=== PATIENT | male | born 1995 | race African-American/Black ===

== ENCOUNTER 2020-07-28 11:23 | Emergency (ER) | payer BC ==
[~2020-07-28] VITALS: Ht 188 cm; Wt 145.5 kg
[2020-07-28 11:48] LABS: BASO % 0.2 % (0.0-2.0); EOS # 0.1 (0.0-0.7); EOS % 0.8 % (0-4.0); GRAN # 9.3 (1.4-6.5); GRAN % 80.3 % (42.2-75.2); HEMATOCRIT 45.4 % (42.0-52.0); HEMOGLOBIN 14.7 g/dl (13.5-18.0); LYMPH # 1.4 (1.2-3.4); LYMPH % 12.2 % (20.0-51.0); MEAN CELL VOLUME 85 fl (80.0-100.0); MEAN CORPUSCULAR HEMOGLOBIN 28 pg (27.0-31.0); MEAN CORPUSCULAR HGB CONC 32 g/dl (33.0-37.0); MEAN PLATELET VOLUME 12.4 fl (7.4-10.4); MONO # 0.7 (0.1-0.6); MONO % 6.3 % (1.7-9.3); PLATELET COUNT 243 K/mm3 (130-400); RED BLOOD COUNT 5.34 M/mm3 (4.20-5.60); REDCELL DISTRIBUTION WIDTH-CV 12.6 % (11.5-14.5)
[2020-07-28 12:20] LABS: ALBUMIN 4.6 gm/dL (3.5-5.0); BILIRUBIN,TOTAL 0.2 mg/dL (0.0-1.0); C-REACTIVE PROTEIN 2.9 mg/dL (0.0-0.9); CALCIUM 9.4 mg/dL (8.4-10.2); CREATININE, serum 0.93 (0.66-1.25); POTASSIUM 3.8 mmol/L (3.4-5.0); TOTAL PROTEIN 8.2 gm/dL (6.4-8.2)
[2020-07-28 12:45] LABS: COLLECTION METHOD CLEAN CATCH
[2020-07-28 12:55] LABS: MUCOUS Present /lpf; PH 5 (5-8); SQUAMOUS EPITHELIAL 0-2 /hpf; URINE APPEARANCE Clear; URINE BACTERIA None Seen /hpf; URINE BILIRUBIN Negative (NEGATIVE); URINE BLOOD 3+ (NEGATIVE); URINE COLOR Yellow; URINE GLUCOSE Negative (NEGATIVE); URINE KETONE Negative (NEGATIVE); URINE LEUKOCYTE ESTERASE Negative (NEGATIVE); URINE NITRATE Negative (NEGATIVE); URINE PROTEIN(semi-quant) 1+ (NEGATIVE); URINE RBC 0-2 /hpf; URINE UROBILINOGEN Negative (NEGATIVE)
[2020-07-28] MEDS ORDERED: ZOFRAN ODT4 MG PO (13:50)
[2020-07-28] MEDS ORDERED: NORCO 325 MG-51 TAB PO (13:50)
[2020-07-28 14:00] VITALS: TEMP 97.8
[2020-07-28 14:03] VITALS: BP 122/79; PULSE 83
== END 2020-07-28 14:04 | disposition home or self-care (01) ==
LOC: COL.ER 11:23
PROVIDERS: Nurse Practitioner
DX: R10.9 Unspecified abdominal pain (principal); R11.0 Nausea; F17.290 Nicotine dependence, other tobacco product, uncomplicated
CPT/HCPCS: J1200; J1885; J2405; J2930; J7030; Q9967

== ENCOUNTER 2020-10-19 18:06 | Emergency (ER) | payer BC ==
[~2020-10-19] VITALS: Ht 188 cm; Wt 95.5 kg
[~2020-10-19 18:06] MED LIST: NORCO 325 MG-51 TAB PO; ZOFRAN ODT4 MG PO
[2020-10-19 18:15] VITALS: TEMP 98
[2020-10-19 18:43] LABS: COLLECTION METHOD CLEAN CATCH
[2020-10-19 18:51] LABS: BUDDING YEAST Present /hpf; MUCOUS Present /lpf; PH 6 (5-8); SQUAMOUS EPITHELIAL 0-2 /hpf; URINE APPEARANCE Cloudy; URINE BACTERIA Moderate /hpf; URINE BILIRUBIN Negative (NEGATIVE); URINE BLOOD 3+ (NEGATIVE); URINE COLOR Amber; URINE GLUCOSE Negative (NEGATIVE); URINE KETONE Negative (NEGATIVE); URINE LEUKOCYTE ESTERASE Negative (NEGATIVE); URINE NITRATE Negative (NEGATIVE); URINE PROTEIN(semi-quant) 2+ (NEGATIVE); URINE RBC 20-50 /hpf; URINE UROBILINOGEN Negative (NEGATIVE)
[2020-10-19 19:08] LABS: BASO % 0.4 % (0.0-2.0); EOS # 0.1 (0.0-0.7); EOS % 1.4 % (0-4.0); GRAN # 5.6 (1.4-6.5); GRAN % 78.6 % (42.2-75.2); HEMATOCRIT 40.7 % (42.0-52.0); HEMOGLOBIN 13.4 g/dl (13.5-18.0); LYMPH # 0.7 (1.2-3.4); LYMPH % 9.6 % (20.0-51.0); MEAN CELL VOLUME 82 fl (80.0-100.0); MEAN CORPUSCULAR HEMOGLOBIN 27 pg (27.0-31.0); MEAN CORPUSCULAR HGB CONC 33 g/dl (33.0-37.0); MEAN PLATELET VOLUME 11.4 fl (7.4-10.4); MONO # 0.7 (0.1-0.6); MONO % 9.9 % (1.7-9.3); PLATELET COUNT 197 K/mm3 (130-400); RED BLOOD COUNT 4.98 M/mm3 (4.20-5.60); REDCELL DISTRIBUTION WIDTH-CV 12.6 % (11.5-14.5)
[2020-10-19 19:24] LABS: C-REACTIVE PROTEIN 6.8 mg/dL (0.0-0.9)
[2020-10-19 19:34] LABS: ALBUMIN 4.3 gm/dL (3.5-5.0); BILIRUBIN,TOTAL 0.4 mg/dL (0.0-1.0); CALCIUM 9.3 mg/dL (8.4-10.2); CREATININE, serum 1.21 (0.66-1.25); POTASSIUM 3.7 mmol/L (3.4-5.0)
[2020-10-19] MEDS ORDERED: OMNICEF 300MG300 MG PO (20:21)
[2020-10-19 20:52] VITALS: BP 146/90; PULSE 70
== END 2020-10-19 20:53 | disposition home or self-care (01) ==
LOC: COL.ER 18:06
PROVIDERS: Nurse Practitioner Primary Care
DX: N39.0 Urinary tract infection, site not specified (principal)
CPT/HCPCS: J0696; J2405; J7030